=== PATIENT | female | born 1980 | race Caucasian/White ===

== ENCOUNTER → 2018-01-16 11:22 | Outpatient (POV) | payer MEDICAID, SELFPAY | PROVIDERS: Family Provider Emergency Medicine; PCP Emergency Medicine; Visit Provider Internal Medicine | DX: Z00.00 Encounter for general adult medical examination without abnormal findings (principal) ==

== ENCOUNTER → 2018-01-18 09:04 | Outpatient (CLI) | payer MEDICAID, SELFPAY ==
[2018-01-18 09:23] LABS: Basophils % 0.8 % (0.1-2.0); Eosinophils # 0.1 K/mm3 (0.0-0.4); Eosinophils % 1.4 % (0.1-12.0); Hematocrit 36.8 % (37.0-47.0); Hemoglobin 11.6 g/dL (12.2-16.2); Lymphocytes # 1.1 K/mm3 (0.7-4.5); Lymphocytes % 29.1 K/mm3 (10-50); Mean Corpuscular HGB Conc 31.6 g/dL (31.8-35.4); Mean Corpuscular Hemoglobin 28.5 pg (27.0-31.2); Mean Corpuscular Volume 90.3 fl (81-99); Mean Platelet Volume 8.6 fl (7.4-10.4); Monocytes # 0.2 K/mm3 (0.1-1.0); Monocytes % 5.2 % (1.7-9.3); Neutrophils # 2.4 K/mm3 (1.8-7.8); Neutrophils % 63.5 % (37.0-80.0); Platelet Count 200 K/mm3 (142-424); Red Blood Count 4.08 M/mm3 (4.20-5.40); Red Cell Distribution Width 12.9 % (11.5-17.5); White Blood Count 3.7 K/mm3 (4.8-10.8)
[2018-01-18 09:51] LABS: Alanine Aminotransferase 14 U/L (12-78); Albumin Level 3.4 gm/dL (3.4-5.0); Albumin/Globulin Ratio 0.9 (1.1-1.8); Alkaline Phosphatase 51 U/L (46-116); Anion Gap 10.5 mEq/L (5-15); Aspartate Amino Transferase 10 U/L (15-37); Bilirubin,Total 0.3 mg/dL (0.2-1.0); Blood Urea Nitrogen 8 mg/dL (7-18); Calcium 8.4 mg/dL (8.5-10.1); Carbon Dioxide 30 mmol/L (21.0-32.0); Chloride 103 mmol/L (98-107); Chol/HDL Ratio 2.1 (1-3.5); Cholesterol 160 mg/dL (140-200); Creatinine,Serum 0.91 mg/dL (0.55-1.02); Estimated Glomerular Filt Rate 69 ml/min (>60); GFR (African American) 84 ML/MIN (>60); Globulin 3.8 gm/dl (1.3-3.2); Glucose 86 mg/dL (74-106); HDL Cholesterol 78 mg/dL (29-89); LDL Cholesterol 61 mg/dL (0-130); Potassium 3.5 mmoL/L (3.5-5.1); Sodium 140 mmol/L (136-145); Total Protein,Serum 7.2 gm/dL (6.4-8.2); Triglycerides 106 mg/dL (30-200); VLDL Cholesterol 21 mg/dL (0-40)
[2018-01-24 13:13] LABS: D001-IgE D pteronyssinus <0.10 kU/L (Class 0); D002-IgE D farinae <0.10 kU/L (Class 0); E001-IgE Cat Dander <0.10 kU/L (Class 0); E005-IgE Dog Dander <0.10 kU/L (Class 0); G002-IgE Bermuda Grass <0.10 kU/L (Class 0); G006-IgE Timothy Grass <0.10 kU/L (Class 0); I006-IgE Cockroach, German <0.10 kU/L (Class 0); Immunoglobulin E, Total 14 IU/mL (0-100); M001-IgE Penicillium chrysogen <0.10 kU/L (Class 0); M002-IgE Cladosporium herbarum <0.10 kU/L (Class 0); M003-IgE Aspergillus fumigatus <0.10 kU/L (Class 0); M006-IgE Alternaria alternata <0.10 kU/L (Class 0); T001-IgE Maple/Box Elder <0.10 kU/L (Class 0); T003-IgE Common Silver Birch <0.10 kU/L (Class 0); T006-IgE Cedar, Mountain <0.10 kU/L (Class 0); T007-IgE Oak, White <0.10 kU/L (Class 0); T008-IgE Elm, American <0.10 kU/L (Class 0); T010-IgE Walnut <0.10 kU/L (Class 0); T011-IgE Maple Leaf Sycamore <0.10 kU/L (Class 0); T014-IgE Cottonwood <0.10 kU/L (Class 0); T015-IgE Ash, White <0.10 kU/L (Class 0); T022-IgE Pecan, Hickory <0.10 kU/L (Class 0); T070-IgE White Mulberry <0.10 kU/L (Class 0); W001-IgE Ragweed, Short <0.10 kU/L (Class 0); W011-IgE Thistle, Russian <0.10 kU/L (Class 0); W014-IgE Pigweed, Common <0.10 kU/L (Class 0); W018-IgE Sheep Sorrel <0.10 kU/L (Class 0)
[2018-01-24 15:45] LABS: E072-IgE Mouse Urine <0.10 kU/L (Class 0)
== END ==
PROVIDERS: Nurse Practitioner Family; Visit Provider Internal Medicine
DX: R06.02 Shortness of breath (principal); R63.5 Abnormal weight gain; Z86.2 Personal history of diseases of the blood and blood-forming organs and certain disorders involving the immune mechanism; E78.5 Hyperlipidemia, unspecified; G43.919 Migraine, unspecified, intractable, without status migrainosus
CPT/HCPCS: 36415; 80053; 80061; 84443; 85025; 86003

== ENCOUNTER → 2018-01-22 13:25 | Outpatient (CLI) | payer MEDICAID, SELFPAY ==
[2018-01-22 14:10] LABS: Reticulocyte % (Auto) 1.1 % (0.9-3.2)
[2018-01-23 08:22] LABS: Iron 93 ug/dL (27-159); UIBC 385 ug/dL (131-425)
[2018-01-23 13:45] LABS: Vitamin B12 217 pg/mL (232-1245)
[2018-01-23 13:58] LABS: Iron Saturation 19 % (15-55)
== END ==
PROVIDERS: Visit Provider Internal Medicine
DX: D64.9 Anemia, unspecified (principal)
CPT/HCPCS: 36415; 82607; 83550; 85044

== ENCOUNTER → 2018-02-01 12:54 | Outpatient (CLI) | payer MEDICAID, SELFPAY ==
[2018-02-01 13:51] VITALS: PULSE 71; PULSE 75
== END ==
PROVIDERS: Family Provider Emergency Medicine; PCP Emergency Medicine; Visit Provider Internal Medicine
DX: R06.2 Wheezing (principal)
CPT/HCPCS: 94060; 94640; 94726; 94729

== ENCOUNTER → 2018-03-27 13:21 | Outpatient (POV) | payer MEDICAID, SELFPAY | PROVIDERS: Family Provider Emergency Medicine; PCP Emergency Medicine; Visit Provider Internal Medicine | DX: Z00.00 Encounter for general adult medical examination without abnormal findings (principal) ==

== ENCOUNTER → 2018-05-22 12:52 | Outpatient (POV) | payer MEDICAID, SELFPAY | PROVIDERS: Family Provider Emergency Medicine; PCP Emergency Medicine; Visit Provider Internal Medicine | DX: Z00.00 Encounter for general adult medical examination without abnormal findings (principal) ==

== ENCOUNTER → 2018-07-17 14:19 | Outpatient (CLI) | payer MEDICAID, SELFPAY ==
--- NOTE | 2018-07-17 14:20 | XR_ITS ---
XR humerus LT CLINICAL INDICATION: ITS.REASON: Check location of Nexplanon ORDERING PHYSICIAN: Jameson Mendoza MD PATIENT AGE: 38 years Comparison: None FINDINGS: A linear density is present along the medial aspect of the arm within the subcutaneous tissues measuring 4.6 cm in length. No bony or joint of the malleus. IMPRESSION: Implantable contraceptive device in the subcutaneous tissues of the mid arm oriented longitudinal to the humerus
== END ==
PROVIDERS: PCP Internal Medicine; Visit Provider Nurse Practitioner Obstetrics & Gynecology
DX: Z97.5 Presence of (intrauterine) contraceptive device (principal)
CPT/HCPCS: 73060

== ENCOUNTER → 2018-12-04 09:46 | Outpatient (POV) | payer MEDICAID, SELFPAY ==
--- NOTE | 2018-12-04 10:24 | XR_ITS ---
XR chest 2V HISTORY: Dyspnea, cough the bronchial stone ITS.REASON: DYSPNEA ORDERING PHYSICIAN: Sebas Simmons MD PATIENT AGE: 38 years COMPARISON: 03/03/2017 FINDINGS: The cardiomediastinal silhouette and pulmonary vascularity are within normal limits. The lungs are clear without infiltrates, suspicious nodules, or pleural effusions . There is a calcified granuloma in the left lower lobe and a few small calcified hilar nodes No acute bony abnormalities. IMPRESSION: No change with no acute finding
== END ==
PROVIDERS: PCP Internal Medicine; Visit Provider Internal Medicine
DX: R06.00 Dyspnea, unspecified (principal)
CPT/HCPCS: 71046

== ENCOUNTER → 2018-12-07 13:09 | Outpatient (CLI) | payer MEDICAID, SELFPAY | PROVIDERS: PCP Internal Medicine; Visit Provider Internal Medicine | DX: J45.909 Unspecified asthma, uncomplicated (principal) | CPT/HCPCS: 94060; 94640 ==

== ENCOUNTER → 2019-05-07 11:46 | Outpatient (POV) | payer MEDICAID, SELFPAY | PROVIDERS: Visit Provider Internal Medicine | DX: Z00.00 Encounter for general adult medical examination without abnormal findings (principal) ==

== ENCOUNTER → 2021-12-28 16:44 | Outpatient (CLI) | payer OTHER, SELFPAY | PROVIDERS: Visit Provider Internal Medicine | DX: N39.0 Urinary tract infection, site not specified (principal); B96.20 Unspecified Escherichia coli [E. coli] as the cause of diseases classified elsewhere | CPT/HCPCS: 87086; 87088; 87186 ==

== ENCOUNTER → 2022-06-20 21:11 | Outpatient (CLI) | payer OTHER, SELFPAY | PROVIDERS: PCP Internal Medicine; Visit Provider Internal Medicine | DX: N39.0 Urinary tract infection, site not specified (principal) | CPT/HCPCS: 87086 ==

== ENCOUNTER → 2022-07-11 17:06 | Outpatient (CLI) | payer OTHER, SELFPAY | PROVIDERS: PCP Internal Medicine; Visit Provider Internal Medicine | DX: N39.0 Urinary tract infection, site not specified (principal) | CPT/HCPCS: 87086 ==

== ENCOUNTER → 2022-09-06 16:59 | Outpatient (CLI) | payer OTHER, SELFPAY | PROVIDERS: PCP Internal Medicine; Visit Provider Internal Medicine | DX: N39.0 Urinary tract infection, site not specified (principal); B96.29 Other Escherichia coli [E. coli] as the cause of diseases classified elsewhere | CPT/HCPCS: 87086; 87088; 87186 ==

== ENCOUNTER → 2022-10-28 11:13 | Outpatient (CLI) | payer OTHER, SELFPAY ==
--- NOTE | 2022-10-28 11:31 | ECG_ITS ---
APPROVED REPORT Exam: Resting ECG HR:72 bpm ECG Measurements Heart Rate 72 AXES OK 131 P 36 QRSd 92 QRS 61 QT 380 T 54 QTc 405 Conclusion SINUS RHYTHM NORMAL ECG Electronically signed by : Christoph Valadez MD 11/21/2022 13:47:00
[2022-10-28 11:54] LABS: Basophils # 0.1 K/mm3 (0-0.2); Basophils % 1.6 % (0.1-2.0); Eosinophils % 0.6 % (0.1-12.0); Hematocrit 40.4 % (37.0-47.0); Hemoglobin 12.8 g/dL (12.2-16.2); Lymphocytes % 24.9 % (10-50); Mean Corpuscular HGB Conc 31.8 g/dL (31.8-35.4); Mean Corpuscular Hemoglobin 29.3 pg (27.0-31.2); Mean Corpuscular Volume 92.3 fl (81-99); Mean Platelet Volume 8.8 fl (7.4-10.4); Monocytes # 0.2 K/mm3 (0.1-1.0); Monocytes % 5.8 % (1.7-9.3); Neutrophils # 2.7 K/mm3 (1.8-7.8); Platelet Count 199 K/mm3 (142-424); Red Blood Count 4.38 M/mm3 (4.20-5.40); Red Cell Distribution Width 12.8 % (11.5-17.5)
[2022-10-28 12:02] LABS: Chloride 104 mmol/L (98-107); Potassium 3.6 mmoL/L (3.5-5.1); Sodium 139 mmol/L (136-145)
[2022-10-28 12:04] LABS: Blood Urea Nitrogen 8 mg/dl (7-17); Estimated Glomerular Filt Rate 61 ml/min (>60); GFR (African American) 73 ML/MIN (>60)
[2022-10-28 12:05] LABS: Alanine Aminotransferase 14 U/L (12-78); Albumin Level 4.2 g/dl (3.5-5.0); Albumin/Globulin Ratio 1.4 (1.1-1.8); Alkaline Phosphatase 52 U/L (38-126); Anion Gap 9.6 mEq/L (5-15); Aspartate Amino Transferase 24 U/L (14-36); Bilirubin,Total 0.6 mg/dl (0.2-1.3); Calcium 8.9 mg/dl (8.4-10.2); Carbon Dioxide 29 mmol/L (22.0-30.0); Glucose 94 mg/dl (74-100); Total Protein,Serum 7.2 g/dl (6.3-8.2)
[2022-10-28 12:18] LABS: Troponin I < 0.01 ng/ml (0.00-0.034)
[2022-10-28 12:23] LABS: Erythrocyte Sedimentation Rate 11 mm/hr (0-20)
== END ==
PROVIDERS: PCP Internal Medicine; Visit Provider Internal Medicine
DX: R55 Syncope and collapse (principal); G45.4 Transient global amnesia
CPT/HCPCS: 36415; 80053; 84484; 85025; 85651; 93005; 93225; 93226

== ENCOUNTER → 2022-11-03 10:48 | Outpatient (CLI) | payer OTHER, SELFPAY ==
--- NOTE | 2022-11-03 | CA_ITS ---
APPROVED REPORT Exam: Exercise Treadmill Technologist: Kelley Hopkins, Ht: 5 ft 0 in Wt: 158 lbs BSA: 1.69 m2 HR: 68 bpm BP: 121/82 mmHg Indications: Near Syncope Medical History Medications: SyMBICORT,,,,, LoraTADINE,,,,, BisOPROLOL-HCTZ,,,,, Stress Test Details Test: Hood HR Resting HR: 78 bpm Max Heart Rate (APMHR): 177.323486 bpm Max HR Achieved: 159 bpm Target HR (85% APMHR): 150.003352 bpm % of APMHR: 89.83 Recovery HR: 84 bpm BP Resting BP: 123/84 mmHg Max BP: 148/84 mmHg Recovery BP: 119.0/82.0 mmHg ECG Resting ECG: NSR, normal Clinical Exercise duration: 09:31 min Highest Stage Achieved: IV Exercise capacity: 10.1 METs Stress ECG Conclusion Exercised 9:30 into stage 4 of Hood Protocol. Max HR: 159 % of PM: 90% Max BP: 144/82 METs: 10.1 Test stopped due to: SOA Symptoms: No CP. Arrhythmias/Ectopy: None ST-T Changes: 1-1.5mm horizontal ST depression laterally & inferiorly. Conclusion: EKG edgardo (+) for ischemia. Myoview images reported separately. Test Summary REST . . . . . . . Sitting REST . . . . . . . Standing REST 03:18 0.0 0.0 78 . 123/ 84 . . Stage 1 01:00 10.0 1.7 91 . . . . Stage 1 02:00 10.0 1.7 102 . . . . Stage 1 03:00 10.0 1.7 108 . 126/ 80 . . Stage 2 01:00 12.0 2.5 115 . . . . Stage 2 02:00 12.0 2.5 118 . . . . Stage 2 03:00 12.0 2.5 122 . 140/ 84 . . Stage 3 01:00 14.0 3.4 137 . . . . Stage 3 02:00 14.0 3.4 137 . . . . Stage 3 03:00 14.0 3.4 144 . 144/ 82 . . Stage 4 00:31 16.0 4.2 156 . . . Stop exercise at 09:31 RECOVERY 01:00 0.0 0.0 123 . . . . RECOVERY 02:00 0.0 0.0 103 . 136/ 84 . . RECOVERY 03:00 0.0 0.0 92 . 131/ 83 . . RECOVERY 04:00 0.0 0.0 86 . 131/ 83 . . RECOVERY 05:00 0.0 0.0 84 . 119/ 82 . . RECOVERY 05:54 0.0 0.0 85 . 119/ 82 . . Electronically signed by : Luca Salmeron MD 11/04/2022 10:42:57
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
--- NOTE | 2022-11-03 10:53 | NM_ITS ---
APPROVED REPORT Exam: Nuclear Stress Test Indication: syncope Patient Location: Outpatient Stress Tech: Kelley Casanova SC Tech:ANA Slater RT(R)(N) Ht: 5 ft 8 in Wt: 155 lbs Bra Size: d HR: 78 bpm BP: 123/84 mmHg BSA: 1.83 m2 TID: 1.02 BMI: 23.5 Procedure: Patient exercised on Hood protocol 9:31 minutes and sec, resting heart rate 78 bpm, resting blood pressure 123/84 mmHg, with exercise maximum heart rate achived was 159 bpm which is 90 % of the maximum predicted heart rate and blood pressure was 148/84 mmHg. Patient denied any complaint of chest pain. Patient has Good exercise capacity, achieved 10.0 METs of workload on treadmill, the blood pressure response to exercise was Adequate. Electrocardiogram Resting electrocardiogram shows sinus rhythm, with exercise there is [address] segment depression noted from the baseline EKG. The EKG portion of the exercise Myoview is positive for ischemia. Cardiac Stress and Resting SPECT Images: Cardiac Stress and Resting SPECT images were obtained using technetium 99m Myoview 32.8 mCi stress and 10.23 mCi at rest. Gated SPECT for analysis of segmental wall motion and calculation of the ejection fraction also done. Prone images were also obtained. Cardiac stress and resting SPECT images show mild fixed defect anteroseptally is likely secondary to soft tissue attenuation, no reversible ischemia seen, compared to ejection fraction 52% with no regional wall motion abnormality, right ventricle is normal size and contractility. Conclusion: 1. The EKG portion of the exercise Myoview is positive for ischemia, patient has good exercise capacity achieved 10 METS of workload on treadmill, the blood pressure response to exercise was adequate, there was no exercise-induced chest discomfort. 2. No scintigraphic evidence of reversible ischemia seen, there is fixed defect anteroseptally which is likely secondary to soft tissue attenuation, computer derived ejection fraction is 52% with no regional wall motion abnormality, right ventricle is normal size and contractility. Electronically signed by : Luca Salmeron MD 11/04/2022 10:45:48
== END ==
PROVIDERS: PCP Internal Medicine; Visit Provider Internal Medicine
DX: R55 Syncope and collapse (principal); R41.3 Other amnesia
CPT/HCPCS: 70450; 78451; 93017; 93306; A9502

== ENCOUNTER 2023-02-22 02:44 | Emergency (ER) | payer OTHER, SELFPAY ==
[2023-02-22 02:44] VITALS: BP 147/102; PULSE 97; RESP 20; TEMP 36.9; O2SAT 100; BMI 21.2
[2023-02-22 03:00] VITALS: BP 133/94; PULSE 101; O2SAT 99
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
--- NOTE | 2023-02-22 03:25 | PC.NURSE ---
pt back from ct scan
[2023-02-22 03:30] VITALS: BP 123/89
[2023-02-22 04:00] VITALS: BP 125/90
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
[2023-02-22 04:44] VITALS: BP 125/88; PULSE 80; RESP 17; TEMP 36.8; O2SAT 99
== END 2023-02-22 05:03 | disposition home or self-care (01) ==
PROVIDERS: Emergency Provider Emergency Medicine; PCP Internal Medicine
DX: S00.93XA Contusion of unspecified part of head, initial encounter (principal); S00.432A Contusion of left ear, initial encounter; R51.9 Headache, unspecified; F17.200 Nicotine dependence, unspecified, uncomplicated; Y04.0XXA Assault by unarmed brawl or fight, initial encounter; Y07.031 Male partner, former, perpetrator of maltreatment and neglect
CPT/HCPCS: 70450; 70490; 90715; 96372; 99284; 99285

== ENCOUNTER → 2023-07-24 18:11 | Outpatient (CLI) | payer OTHER, SELFPAY | PROVIDERS: PCP Internal Medicine; Visit Provider Internal Medicine | DX: N39.0 Urinary tract infection, site not specified (principal); B96.89 Other specified bacterial agents as the cause of diseases classified elsewhere | CPT/HCPCS: 87086; 87088; 87186 ==

== ENCOUNTER 2023-11-08 14:22 | Outpatient (CLI) | payer BC, SELFPAY | END 2023-11-08 23:59 | PROVIDERS: PCP Internal Medicine; Visit Provider Internal Medicine | DX: N39.0 Urinary tract infection, site not specified (principal); B96.89 Other specified bacterial agents as the cause of diseases classified elsewhere | CPT/HCPCS: 87086 ==

== ENCOUNTER 2024-03-12 17:01 | Outpatient (CLI) | payer BC, SELFPAY | END 2024-03-12 23:59 | disposition home or self-care (01) | LOC: LAB.DROPOF 17:02 | PROVIDERS: PCP Internal Medicine; Visit Provider Internal Medicine | DX: N39.0 Urinary tract infection, site not specified (principal); B96.29 Other Escherichia coli [E. coli] as the cause of diseases classified elsewhere | CPT/HCPCS: 87086; 87088; 87186 ==

== ENCOUNTER 2024-04-09 14:55 | Outpatient (CLI) | payer BC, SELFPAY ==
[2024-04-09 13:36] LABS: Basophils % 0.3 % (0.1-2.0); Eosinophils % 0.3 % (0.1-12.0); Hematocrit 41.8 % (37.0-47.0); Hemoglobin 13.3 g/dL (12.2-16.2); Lymphocytes # 0.9 K/mm3 (0.7-4.5); Lymphocytes % 8.4 % (10-50); Mean Corpuscular HGB Conc 31.8 g/dL (31.8-35.4); Mean Corpuscular Hemoglobin 29.5 pg (27.0-31.2); Mean Corpuscular Volume 92.8 fl (81-99); Mean Platelet Volume 8.6 fl (7.4-10.4); Monocytes # 0.4 K/mm3 (0.1-1.0); Monocytes % 3.6 % (1.7-9.3); Neutrophils # 8.9 K/mm3 (1.8-7.8); Neutrophils % 87.5 % (37.0-80.0); Platelet Count 216 K/mm3 (142-424); Red Blood Count 4.51 M/mm3 (4.20-5.40); Red Cell Distribution Width 13.3 % (11.5-17.5); White Blood Count 10.2 K/mm3 (4.8-10.8)
[2024-04-09 13:40] LABS: MANUAL DIFFERENTIAL MANUAL DIFFERENTIAL (MANUAL DIFF)
[2024-04-09 14:19] LABS: Alanine Aminotransferase 18 U/L (12-78); Albumin Level 4.3 g/dl (3.5-5.0); Albumin/Globulin Ratio 1.4 (1.1-1.8); Alkaline Phosphatase 54 U/L (38-126); Anion Gap 11.8 mEq/L (5-15); Aspartate Amino Transferase 25 U/L (14-36); Bilirubin,Total 0.6 mg/dl (0.2-1.3); Blood Urea Nitrogen 12 mg/dl (7-17); Calcium 9.4 mg/dl (8.4-10.2); Carbon Dioxide 29 mmol/L (22.0-30.0); Chloride 99 mmol/L (98-107); Estimated Glomerular Filt Rate 54 ml/min (>60); GFR (African American) 65 ML/MIN (>60); Glucose 77 mg/dl (74-100); Potassium 3.8 mmoL/L (3.5-5.1); Sodium 136 mmol/L (136-145); Total Protein,Serum 7.3 g/dl (6.3-8.2)
[2024-04-09 16:34] LABS: Eosinophils % 1 % (0-3); Lymphocytes % 16 % (10-50); Monocytes % 7 % (2-9); Neutrophils % 76 % (42-76); Total Cells Counted 100
[2024-04-09 16:37] LABS: RBC Morphology Normal
[2024-04-09 16:38] LABS: Platelet Estimate Normal
== END 2024-04-09 23:59 | disposition home or self-care (01) ==
LOC: LAB.DROPOF 14:56
PROVIDERS: PCP Nurse Practitioner Family; Visit Provider Nurse Practitioner Family
DX: N39.0 Urinary tract infection, site not specified (principal); R80.9 Proteinuria, unspecified; R31.9 Hematuria, unspecified; N23 Unspecified renal colic; B96.20 Unspecified Escherichia coli [E. coli] as the cause of diseases classified elsewhere
CPT/HCPCS: 80053; 84156; 85007; 85025; 85027; 87086; 87088; 87186

== ENCOUNTER 2024-07-15 16:19 | Outpatient (CLI) | payer BC, SELFPAY ==
[2024-07-15 16:31] LABS: Microscopic, Urine URINE MICROSCOPIC (MICROSCOPIC)
[2024-07-15 17:02] LABS: Basophils % 0.8 % (0.1-2.0); Eosinophils % 0.6 % (0.1-12.0); Hematocrit 41.2 % (37.0-47.0); Hemoglobin 12.8 g/dL (12.2-16.2); Lymphocytes # 1.5 K/mm3 (0.7-4.5); Lymphocytes % 34.9 % (10-50); Mean Corpuscular HGB Conc 31.1 g/dL (31.8-35.4); Mean Corpuscular Hemoglobin 29.1 pg (27.0-31.2); Mean Corpuscular Volume 93.6 fl (81-99); Mean Platelet Volume 8.4 fl (7.4-10.4); Monocytes # 0.3 K/mm3 (0.1-1.0); Neutrophils # 2.5 K/mm3 (1.8-7.8); Neutrophils % 57.7 % (37.0-80.0); Platelet Count 220 K/mm3 (142-424); Red Blood Count 4.41 M/mm3 (4.20-5.40); White Blood Count 4.3 K/mm3 (4.8-10.8)
[2024-07-15 17:17] LABS: Appearance,Urine CLEAR (Clear); Bilirubin,Urine Negative (Negative); Blood, Urine Negative (Negative); Color,Urine YELLOW (Yellow); Glucose,Urine (UA) Negative (Negative); Ketones,Urine Negative (Negative); Leukocyte Esterase,Urine 3+ (Negative); Nitrate,Urine Negative (Negative); Protein,Urine Negative (Negative); Urobilinogen,Urine 0.2 EU/dl (0.2)
[2024-07-15 17:19] LABS: Creatinine,Urine Random 56 mg/dL (Not Estab.); Microalbumin < 6.000 mg/L (0-16.7)
[2024-07-15 17:36] LABS: Chloride 103 mmol/L (98-107)
[2024-07-15 17:37] LABS: Albumin Level 4.1 g/dl (3.5-5.0); Potassium 4.1 mmoL/L (3.5-5.1); Sodium 135 mmol/L (136-145)
[2024-07-15 17:40] LABS: Anion Gap 8.1 mEq/L (5-15); Blood Urea Nitrogen 13 mg/dl (7-17); Carbon Dioxide 28 mmol/L (22.0-30.0); Estimated Glomerular Filt Rate 60 ml/min (>60); GFR (African American) 73 ML/MIN (>60); Glucose 90 mg/dl (74-100); Phosphorous 3.7 mg/dl (2.5-4.5)
[2024-07-15 18:12] LABS: Bacteria,Urine 1+ /lpf; RBC,Urine Occasional #/hpf (0-3)
[2024-07-15 18:54] LABS: 25-OH Vitamin D, Total > 126 ng/mL (30-100)
[2024-07-15 20:35] LABS: Intact Parathyroid Hormone 35.7 pg/mL (7.5-53.5)
== END 2024-07-15 23:59 | disposition home or self-care (01) ==
LOC: LAB 16:21
PROVIDERS: PCP Internal Medicine; Visit Provider Student in an Organized Health Care Education/Training Program
DX: R80.9 Proteinuria, unspecified (principal)
CPT/HCPCS: 36415; 80069; 81001; 82043; 82306; 82570; 83970; 84156; 85025; 87086

== ENCOUNTER 2024-07-18 14:19 | Outpatient (POV) | payer BC, SELFPAY | END 2024-07-18 23:59 | disposition home or self-care (01) | LOC: SC 14:19 | PROVIDERS: Visit Provider Student in an Organized Health Care Education/Training Program | DX: Z00.00 Encounter for general adult medical examination without abnormal findings (principal) ==

== ENCOUNTER 2024-08-19 16:28 | Outpatient (CLI) | payer BC, SELFPAY ==
--- NOTE | 2024-08-19 16:29 | MM_ITS ---
PROCEDURE INFORMATION: Exam: MG Bilateral Screening 3D Mammography Exam date and time: 08/19/2024 4:15 PM Age: 44 years old Clinical indication: Baseline. No family history of breast cancer. TECHNIQUE: Imaging protocol: Bilateral Screening tomosynthesis and 2D mammography including computer-aided detection (CAD) when performed. COMPARISON: 1. BR US BREAST-RT COMPLETE W/AXILLA 03/10/2017 9:33 AM 2. StartDictation> 3. The breasts are extremely dense, which lowers the sensitivity of mammography. FINDINGS: MAMMOGRAPHY: Breast composition: Mass: None. Architectural distortion: None. Calcifications: No suspicious calcifications. Asymmetric density: None. Skin thickening: None. Axillary adenopathy: None. IMPRESSION: No mammographic evidence of malignancy. Annual screening is recommended unless otherwise clinically indicated. ASSESSMENT: BI-RADS Category 1: Negative.
== END 2024-08-19 23:59 | disposition home or self-care (01) ==
LOC: RAD 16:29
PROVIDERS: PCP Internal Medicine; Visit Provider Nurse Practitioner Obstetrics & Gynecology
DX: Z12.31 Encounter for screening mammogram for malignant neoplasm of breast (principal)
CPT/HCPCS: 77063; 77067

== ENCOUNTER 2024-11-14 18:19 | Outpatient (CLI) | payer BC, SELFPAY | END 2024-11-14 23:59 | disposition home or self-care (01) | LOC: LAB.DROPOF 18:20 | PROVIDERS: PCP Internal Medicine; Visit Provider Internal Medicine | DX: N39.0 Urinary tract infection, site not specified (principal); R10.9 Unspecified abdominal pain; R31.9 Hematuria, unspecified | CPT/HCPCS: 87086 ==